=== PATIENT | female | born 1955 ===

== ENCOUNTER 2018-03-14 12:27 | Outpatient (CLI) | payer OTHER ==
[~2018-03-14] VITALS: Ht 160 cm; Wt 77.1 kg
== END 2018-03-14 14:17 | disposition home or self-care (01) ==
LOC: OFIC 805 12:27
DX: E04.1 Nontoxic single thyroid nodule (principal); R22.0 Localized swelling, mass and lump, head; J31.0 Chronic rhinitis; J34.3 Hypertrophy of nasal turbinates